=== PATIENT | male | born 1990 | race Caucasian/White ===

== ENCOUNTER 2019-11-13 16:23 | Emergency (ER) | payer OTHER ==
[~2019-11-13] VITALS: Ht 185.4 cm; Wt 95.3 kg
[2019-11-13 16:30] VITALS: BP 154/89
== END 2019-11-13 18:39 | disposition home or self-care (01) ==
LOC: ER 16:28
DX: S06.0X0A Concussion without loss of consciousness, initial encounter (principal); R20.2 Paresthesia of skin; M79.10 Myalgia, unspecified site; Z60.2 Problems related to living alone; V49.69XA Unspecified car occupant injured in collision with other motor vehicles in traffic accident, initial encounter; Y93.89 Activity, other specified; Y92.413 State road as the place of occurrence of the external cause; Y99.8 Other external cause status
CPT/HCPCS: 70450-TC; 72125-TC